=== PATIENT | male | born 1950 | race Caucasian/White ===

== ENCOUNTER → 2019-01-07 | Outpatient (CLI) | payer OTHER ==
[2019-01-07 14:08] LABS: HCT 47.3 % (39.0-53.0); HGB 15.7 gm/dL (13.0-17.5); MCH 31.1 pg (25.0-35.0); MCHC 33.3 g/dL (31.0-37.0); MCV 93.3 fL (80.0-100.0); Mean Platelet Volume 7.5; Platelet Count 238 k/uL (150-450); RBC 5.06 m/uL (4.30-5.90); RDW 12.7 % (11.5-15.5); WBC 6.7 k/uL (3.8-10.6)
[2019-01-07 14:36] LABS: Potassium 5.2 mmol/L (3.5-5.1)
== END ==
LOC: LABPAT 13:22
PROVIDERS: ATTEND Internal Medicine Pulmonary Disease
DX: Z01.812 Encounter for preprocedural laboratory examination (principal); I49.3 Ventricular premature depolarization; R07.2 Precordial pain
CPT/HCPCS: 36415; 80051; 82565; 84520; 85027

== ENCOUNTER 2019-01-10 05:51 | Day surgery (SDC) | payer OTHER ==
[2019-01-07 14:28] VITALS: BMI 25.1
[2019-01-10] MEDS ORDERED: SODIUM CHLORIDE 0.9% 1,000 ML IV ONE (06:00)
[2019-01-10] MEDS ORDERED: SODIUM CHLORIDE 0.9% 1,000 ML in EMPTY BAG 1 BAG IV ONE (06:06)
[2019-01-10] MEDS ORDERED: ASPIRIN 325 MG TAB PO STA (06:06)
[2019-01-10] MEDS ORDERED: NITROGLYCERIN SL TABS 0.4 MG TAB SUBLINGUAL PRN (06:06)
[2019-01-10] MEDS ORDERED: ALPRAZolam 0.25 MG TAB PO PRN (06:06)
[2019-01-10] MEDS ORDERED: ATORVASTATIN 80 MG TAB PO STA (06:06)
[2019-01-10] MEDS ORDERED: ALPRAZolam 0.5 MG TAB PO PRN (06:06)
[2019-01-10] MEDS ORDERED: IV FLUID CONTINUATION 800 ML IV ONE (08:46)
[2019-01-10] MEDS ORDERED: MIDAZOLAM 2 MG/2 ML VIAL IV ONE (08:46)
[2019-01-10] MEDS ORDERED: LIDOCAINE 1% INJ 10MG/ML (20 ML MDV) ONE (08:55)
[2019-01-10] MEDS ORDERED: fentaNYL (PF) 50 MCG/ML 2 ML AMP ONE (08:56)
[2019-01-10 09:00] VITALS: RESP 16
[2019-01-10] MEDS ORDERED: fentaNYL (PF) 50 MCG/ML 2 ML AMP IV ONE (09:26)
[2019-01-10] MEDS ORDERED: LIDOCAINE 1% INJ 10MG/ML (20 ML MDV) SQ ONE (09:30)
[2019-01-10] MEDS ORDERED: IOPAMIDOL-370 125ML BTL INJ ONE (09:53)
[2019-01-10] MEDS ORDERED: RX INFO: IV CONTRAST WAS GIVEN 1 EACH MISC MISCELLANE PRN (10:25)
[2019-01-10] MEDS ORDERED: SILDENAFIL CITRATE 100 MG PO PRN (10:27)
[2019-01-10] MEDS ORDERED: METOPROLOL SUCCINATE (ER) 25 MG TAB.ER.24H PO SCH (10:30)
[2019-01-10 16:02] VITALS: PULSE 58
[2019-01-10 16:06] VITALS: BP 156/84
[2019-01-11] MEDS ORDERED: PANTOPRAZOLE 40 MG TABLET PO SCH (07:30)
[2019-01-11] MEDS ORDERED: ISOSORBIDE MONONITRATE ER 30 MG TAB.ER.24H PO SCH (09:00)
[2019-01-11] MEDS ORDERED: NON FORMULARY DRUG (Latanoprost/Pf [Latanoprost 0.005% Eye Drop] 1 DROP) BOTH EYES SCH (09:00)
[2019-01-11] MEDS ORDERED: ATORVASTATIN 20 MG TAB PO SCH (09:00)
[2019-01-11] MEDS ORDERED: TAMSULOSIN 0.4 MG CAP.ER.24H PO SCH (09:00)
[2019-01-11] MEDS ORDERED: TIMOLOL BOTH EYES SCH (09:00)
--- NOTE | 2019-01-24 08:51 | CC ---
CARDIAC CATHETERIZATION REPORT INDICATION: Papa is a 68-year-old gentleman who was advised to undergo cardiac catheterization because of an abnormal stress test. The patient was explained of risks, benefits and alternatives. PROCEDURE NOTE: After obtaining informed consent, left heart catheterization and coronary angiogram were performed via the right femoral artery using standard Jami catheters. The patient tolerated the procedure well without any obvious immediate complications. A femoral angiogram was performed and Angio-Seal was deployed for hemostasis. Patient received moderate conscious sedation. Total sedation time was 17 minutes. FINDINGS: 1. HEMODYNAMICS: Left ventricular end-diastolic pressure is 12 mm. There is no significant gradient across the aortic valve. 2. LEFT VENTRICULOGRAM: Left ventriculogram is not performed. 3. ANGIOGRAPHIC DATA: Left Main Coronary Artery: Left main coronary artery is a normal-sized vessel and is free of stenosis, appears calcified but is free of significant stenosis. Divides into left anterior descending coronary artery and circumflex coronary artery. Circumflex coronary artery is a nondominant vessel and shows a long segment of stenosis at its worst is 95% stenosed. Right coronary artery is subtotally occluded in its midportion with [id number] and [id number] collaterals. LAD is a large vessel that wraps around the apex of the heart shows a 40% to 50% stenosis in the midportion and there is a septal mattress finisher that has a tight stenosis in the ostial portion. CONCLUSIONS: 1. Three-vessel coronary artery disease as described above. 2. 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 PLAN: Patient's management is going to be in the form of aggressive medical therapy. MMODL / IJN: [id number] /
== END 2019-01-10 15:05 | disposition home or self-care (01) ==
LOC: CATHCVL 05:51
PROVIDERS: ATTEND Internal Medicine Cardiovascular Disease
DX: I25.10 Atherosclerotic heart disease of native coronary artery without angina pectoris (principal); Z82.49 Family history of ischemic heart disease and other diseases of the circulatory system; Z79.899 Other long term (current) drug therapy; E78.2 Mixed hyperlipidemia; Z79.1 Long term (current) use of non-steroidal anti-inflammatories (NSAID)
CPT/HCPCS: 93458; C1760; C1894; C1769; J2250; J2001; J3010; Q9967